=== PATIENT | male | born 1995 | race Caucasian/White ===

== ENCOUNTER → 2018-11-04 | Outpatient (REF) | LOC: M LAB 11:37 | PROVIDERS: ATTEND Nurse Practitioner Family | DX: Z00.00 Encounter for general adult medical examination without abnormal findings (principal) ==

== ENCOUNTER → 2021-03-04 | Outpatient (CLI) | payer OTHER ==
--- NOTE | 2021-03-04 10:03 | REP ---
INDICATION: POSITIVE PPD TEST COMPARISON: None. TECHNIQUE: PA and lateral. FINDINGS: The mediastinum and cardiac silhouette are normal. The lung taylor are clear and without acute consolidation, effusion, or pneumothorax. The skeletal structures are intact and normal. IMPRESSION: No acute cardiopulmonary process. <Electronically signed by Nguyễn Chand > 03/04/21 [id number]
== END ==
LOC: M WUC 09:41
PROVIDERS: ATTEND Family Medicine Adult Medicine
DX: R76.11 Nonspecific reaction to tuberculin skin test without active tuberculosis (principal)

== ENCOUNTER → 2022-05-11 | Outpatient (CLI) | payer OTHER | LOC: M WUC 11:23 | PROVIDERS: ATTEND Nurse Practitioner Family | DX: R76.11 Nonspecific reaction to tuberculin skin test without active tuberculosis (principal) ==